=== PATIENT | female | born 1990 | race Caucasian/White ===

== ENCOUNTER 2023-10-11 03:30 | Emergency (ER) | payer MEDICAID ==
[~2023-10-11] VITALS: Ht 170.2 cm; Wt 57.6 kg
[2023-10-11 03:44] VITALS: TEMP 98.1
[2023-10-11] MEDS ORDERED: diphenhydrAMINE HCL 50 MG/ML VIAL ONE (04:18)
[2023-10-11] MEDS ORDERED: ACETAMINOPHEN ES 500 MG TABLET ONE (04:19)
[2023-10-11] MEDS ORDERED: PROCHLORPERAZINE EDISYLATE 10 MG/2 ML VIAL ONE (04:19)
[2023-10-11] MEDS ORDERED: PROCHLORPERAZINE EDISYLATE 10 MG/2 ML VIAL IVP ONE (04:30)
[2023-10-11] MEDS ORDERED: diphenhydrAMINE HCL 50 MG/ML VIAL IV ONE (04:30)
[2023-10-11] MEDS ORDERED: ACETAMINOPHEN ES 500 MG TABLET PO ONE (04:30)
[2023-10-11] MEDS ORDERED: IV NS 0.9% 1,000 ML BAG IV ONE (04:30)
[2023-10-11 05:47] VITALS: BP 112/82; O2SAT 97
== END 2023-10-11 05:48 | disposition home or self-care (01) ==
LOC: ER 03:34
DX: G43.909 Migraine, unspecified, not intractable, without status migrainosus (principal)
CPT/HCPCS: 99284; 96374; 96361; 96375; J0780; J1200; J7030